=== PATIENT | female | born 1960 | race Caucasian/White ===

== ENCOUNTER 2016-06-23 15:35 | Outpatient (CLI) | payer BC | END 2016-06-23 15:36 | disposition home or self-care (01) | DX: G35 Multiple sclerosis (principal) ==

== ENCOUNTER 2017-06-16 14:39 | Outpatient (CLI) | payer BC ==
[2017-06-16 17:44] LABS: BASOPHILS % (AUTO) 1.1 %; HGB - HEMOGLOBIN 12.8 g/dL (12.0-16.0); LYMPHOCYTES % (AUTO) 43.2 %; MEAN CORPUSCULAR HEMOGLOBIN 29.6 pg (27.0-31.0); MEAN CORPUSCULAR HGB CONC 32.6 g/dL (32.0-36.0); MEAN CORPUSCULAR VOLUME 90.9 fL (81.0-99.0); MEAN PLATELET VOLUME 9.3 fL (7.9-10.8); MONOCYTES % (AUTO) 9.6 %; NEUTROPHILS % (AUTO) 41.1 %; PLT - PLATELET COUNT 198 10^3/uL (130-450); RED BLOOD COUNT 4.32 10^6/uL (4.20-5.40); WHITE BLOOD COUNT 2.9 x10^3/uL (4.8-10.8)
[2017-06-16 17:47] LABS: ABNORMAL LYMPHS % (MANUAL) 0 %; BAND NEUTROPHILS % (MANUAL) 0 %
[2017-06-16 18:15] LABS: ALKALINE PHOSPHATASE 53 IU/L (42-121); ALT ALANINE AMINOTRANSFERASE 17 IU/L (10-60); AST ASPARTATE AMINOTRANSFERASE 25 IU/L (10-42); BILIRUBIN,TOTAL 0.7 mg/dL (0.2-1.0)
[2017-06-16 18:22] LABS: DIFFERENTIAL COMMENT MANUAL DIFFERENTIAL; EOSINOPHILS # (MANUAL) 0.1 10^3/uL (0-0.7); LYMPHOCYTES # (MANUAL) 1.3 10^3/uL (1.5-3.5); LYMPHOCYTES % (MANUAL) 45 %; MONOCYTES # (MANUAL) 0.2 10^3/uL (0.0-1.0); NEUTROPHILS # (MANUAL) 1.3 10^3/uL (1.5-6.6); NEUTROPHILS % (MANUAL) 46 %; PLATELET ESTIMATE, MANUAL NORMAL (130-450,000) (NORMAL); PLATELET MORPHOLOGY NORMAL APPEARANCE (NORMAL); RBC MORPHOLOGY (MULTIPLE) NORMAL APPEARANCE (NORMAL)
[2017-06-16 18:24] LABS: BILIRUBIN,DIRECT < 0.1 mg/dL (0.1-0.5)
== END 2017-06-16 14:40 | disposition home or self-care (01) ==
LOC: LAB.F 14:39
PROVIDERS: ATTEND Psychiatry & Neurology Neurology
DX: G35 Multiple sclerosis (principal)
CPT/HCPCS: 36415; 80076; 85025

== ENCOUNTER 2018-01-18 12:39 | Outpatient (CLI) | payer BC ==
[2018-01-18 19:55] LABS: BASOPHILS % (AUTO) 1.2 %; EOSINOPHILS % (AUTO) 4.4 %; HGB - HEMOGLOBIN 13.4 g/dL (12.0-16.0); LYMPHOCYTES % (AUTO) 46.1 %; MEAN CORPUSCULAR HEMOGLOBIN 31.2 pg (27.0-31.0); MEAN CORPUSCULAR HGB CONC 33.4 g/dL (32.0-36.0); MEAN CORPUSCULAR VOLUME 93.2 fL (81.0-99.0); MEAN PLATELET VOLUME 9.8 fL (7.9-10.8); MONOCYTES % (AUTO) 10.2 %; NEUTROPHILS % (AUTO) 38.1 %; PLT - PLATELET COUNT 188 10^3/uL (130-450); RED BLOOD COUNT 4.29 10^6/uL (4.20-5.40); RED CELL DISTRIBUTION WIDTH 14.2 % (12.0-15.0); WHITE BLOOD COUNT 2.9 x10^3/uL (4.8-10.8)
[2018-01-18 20:19] LABS: ALBUMIN 4.1 g/dL (3.2-5.5); ALKALINE PHOSPHATASE 60 IU/L (42-121); ALT ALANINE AMINOTRANSFERASE 21 IU/L (10-60); AST ASPARTATE AMINOTRANSFERASE 22 IU/L (10-42); BILIRUBIN,TOTAL 0.7 mg/dL (0.2-1.0); TOTAL PROTEIN 7.3 g/dL (6.7-8.2)
[2018-01-18 20:37] LABS: ABNORMAL LYMPHS % (MANUAL) 0 %
[2018-01-18 20:38] LABS: BILIRUBIN,DIRECT < 0.1 mg/dL (0.1-0.5)
[2018-01-18 21:07] LABS: BAND NEUTROPHILS % (MANUAL) 1 %; DIFFERENTIAL COMMENT MANUAL DIFFERENTIAL; EOSINOPHILS # (MANUAL) 0.2 10^3/uL (0-0.7); LYMPHOCYTES # (MANUAL) 1.4 10^3/uL (1.5-3.5); LYMPHOCYTES % (MANUAL) 47 %; MONOCYTES # (MANUAL) 0.3 10^3/uL (0.0-1.0); NEUTROPHILS % (MANUAL) 35 %; PLATELET ESTIMATE, MANUAL NORMAL (130-450,000) (NORMAL); PLATELET MORPHOLOGY NORMAL APPEARANCE (NORMAL); RBC MORPHOLOGY (MULTIPLE) NORMAL APPEARANCE (NORMAL)
== END 2018-01-18 12:40 | disposition home or self-care (01) ==
LOC: LAB.F 12:39
PROVIDERS: ATTEND Psychiatry & Neurology Neurology
DX: G35 Multiple sclerosis (principal)
CPT/HCPCS: 36415; 80076; 81599; 85004; 85025; 85048

== ENCOUNTER 2018-03-21 13:28 | Outpatient (CLI) | payer BC ==
--- NOTE | 2018-03-21 15:27 | XRAY Report ---
Reason: DYSPNEA ON EXERTION Procedure Date: 03/21/2018 Accession Number: [id number] / [id number] Procedure: XR - Chest 2 View X-Ray CPT Code: 60602 FULL RESULT: EXAM: CHEST RADIOGRAPHY EXAM DATE: 03/21/2018 01:54 PM. CLINICAL HISTORY: Dyspnea on exertion. COMPARISON: None. TECHNIQUE: 2 views. FINDINGS: Lungs/Pleura: No focal opacities evident. No pleural effusion. No pneumothorax. Normal volumes. Mediastinum: Heart and mediastinal contours are unremarkable. Other: None. IMPRESSION: Normal 2-view chest radiography. RADIA
== END 2018-03-21 13:29 | disposition home or self-care (01) ==
LOC: DI 13:28
PROVIDERS: ATTEND Nurse Practitioner Family
DX: R06.00 Dyspnea, unspecified (principal)
CPT/HCPCS: 71046

== ENCOUNTER 2018-08-06 14:31 | Emergency (ER) | payer BC ==
--- NOTE | 2018-08-06 14:51 | ED Physician Documentation ---
PD HPI ABD PAIN - Stated complaint Stated Complaint: R SIDE PX - Chief complaint Chief Complaint: Abd Pain - History obtained from History obtained from: Patient - History of Present Illness Timing - onset: Today Timing - duration: Days (1) Timing - details: Gradual onset (She had had dysuria and frequency of urine and diagnosed with UTI in the office last week and placed on Bactrim. She was called 2 days ago and changed to Macrobid because of the culture result showing resistance to sulfa. She states she is had less of the dysuria though not com pletely resolved. Today she is having right flank pain as well. She denies any fever nausea or vomiting. She denies any abdominal pain per se. No noted rash. She denies any vaginal discharge.) Quality: Aching, Pain Location: Other (right flank) Radiation: Right flank Improved by: No: Eating Worsened by: No: Eating Associated symptoms: Nausea, Dysuria. No: Fever, Vomiting, Diarrhea, Hematuria, Vaginal dc Recently seen: Clinic (see above) Review of Systems Constitutional: reports: Myalgias. denies: Fever, Chills Nose: denies: Rhinorrhea / runny nose, Congestion Throat: denies: Sore throat Respiratory: denies: Cough GI: reports: Nausea. denies: Vomiting, Diarrhea : reports: Dysuria, Frequency. denies: Discharge Skin: denies: Rash Musculoskeletal: reports: Back pain Neurologic: denies: Generalized weakness PD PAST MEDICAL HISTORY - Past Medical History Cardiovascular: None Respiratory: None : None - Present Medications Home Medications: Ambulatory Orders Medication Instructions Recorded Confirmed Cephalexin [Keflex] 500 mg PO Q6H #28 capsule 08/06/18 Ondansetron Odt [Zofran] 4 mg TL Q6H PRN #10 tablet 08/06/18 - Allergies Allergies/Adverse Reactions: Allergies Allergy/AdvReac Type Severity Reaction Status Date / Time No Known Drug Allergies Allergy Verified 08/06/18 14:44 - Living Situation Living Arrangement: reports: At home PD ED PE NORMAL - Vitals Vital signs reviewed: Yes - General General: Alert and oriented X 3, No acute distress, Well developed/nourished - Cardiac Cardiac: RRR, No murmur - Respiratory Respiratory: Clear bilaterally - Abdomen Abdomen: Soft, Non tender - Female Female : Deferred - Back Back: Other (right CVA tender to percussion. NO rash nor sores. ) - Derm Derm: Normal color, Warm and dry - Neuro Neuro: Alert and oriented X 3, No motor deficit, Normal speech Results - Vitals Vitals: Vital Signs - 24 hr 08/06/18 08/06/18 08/06/18 14:43 14:44 15:57 Temperature 37.0 C 37.0 C 36.5 C Heart Rate 97 97 71 Respiratory 18 18 18 Rate Blood Pressure 95/62 95/62 115/59 L O2 Saturation 96 96 97 Oxygen O2 Source Room air - Labs Labs: Laboratory Tests 08/06/18 14:56 Urine Color YELLOW Urine Clarity CLEAR Urine pH 5.5 Ur Specific Monson >=1.030 H Urine Protein NEGATIVE Urine Glucose (UA) NEGATIVE Urine Ketones NEGATIVE Urine Occult Blood NEGATIVE Urine Nitrite NEGATIVE Urine Bilirubin NEGATIVE Urine Urobilinogen 0.2 (NORMAL) Ur Leukocyte Esterase NEGATIVE Ur Microscopic Review NOT INDICATED Urine Culture Comments NOT INDICATED PD MEDICAL DECISION MAKING - ED course Complexity details: considered differential (She has some pain in the right flank with CVA tenderness. The abdominal exam is nontender. She had been treated for urinary tract infection and was placed on Macrobid and still has some dysuria and now the flank pain. Discussed it with her and shared decision making of foregoing imaging or other workup and treating with an antibiotic with better tissue penetration. I called the on-call provider for [facility] [place] and review of the urine culture she had recently showed sensitivity to cephalosporins and penicillins. We will place her on cephalexin and use some anti-inflammatories and see if she is improved over the next couple of days. She is agreeable to this plan.), d/w patient Departure - Departure Disposition: 01 Home, Self Care Clinical Impression: Right flank pain UTI (urinary tract infection) Qualifiers: Urinary tract infection type: site unspecified Hematuria presence: without hematuria Qualified Code(s): N39.0 - Urinary tract infection, site not specified Condition: Stable Record reviewed to determine appropriate education?: Yes Follow-Up: Alva Heredia PA [Primary Care Provider] - Prescriptions: Cephalexin [Keflex] 500 mg PO Q6H #28 capsule Ondansetron Odt [Zofran] 4 mg TL Q6H PRN #10 tablet PRN Reason: Nausea / Vomiting Comments: Stay well-hydrated. Continue usual medications. Take cephalexin antibiotic as directed for a week for presumed kidney infection. Your urine test is clear right now but that is likely from the partial treatment from the nitrofurantoin. Your symptoms are suggestive of kidney infection and the cephalexin should do a better job. Tylenol or ibuprofen as needed for pains. Ondansetron if needed for nausea. Recheck if not improved over the next 2-3 days. Discharge Date/Time: 08/06/18 16:00
[2018-08-06 15:13] LABS: BILIRUBIN,URINE NEGATIVE (NEGATIVE); GLUCOSE, URINE (UA) NEGATIVE (NEGATIVE); KETONES,URINE (UA) NEGATIVE (NEGATIVE); LEUKOCYTE ESTERASE, URINE NEGATIVE (NEGATIVE); NITRITE,URINE NEGATIVE (NEGATIVE); OCCULT BLOOD,URINE NEGATIVE (NEGATIVE); PH,URINE 5.5 PH (5.0-7.5); PROTEIN,URINE NEGATIVE (NEGATIVE); UROBILINOGEN,URINE 0.2 (NORMAL) E.U./dL (NORMAL)
[2018-08-06 15:14] LABS: CLARITY,URINE CLEAR (CLEAR)
[2018-08-06] MEDS ORDERED: cephALEXin 250 MG CAPSULE PO STA (15:22)
[2018-08-06 15:58] VITALS: BP 115/59
== END 2018-08-06 16:00 | disposition home or self-care (01) ==
LOC: ED 14:31
DX: N39.0 Urinary tract infection, site not specified (principal)
CPT/HCPCS: 81003; 99283; A9270; 81001; 87086

== ENCOUNTER 2019-02-24 14:27 | Outpatient (CLI) | payer BC ==
[2019-02-24 17:45] LABS: BASOPHILS % (AUTO) 1.3 %; EOSINOPHILS # (AUTO) 0.2 10^3/uL (0.0-0.7); EOSINOPHILS % (AUTO) 4.7 %; HGB - HEMOGLOBIN 12.5 g/dL (12.0-16.0); LYMPHOCYTES # (AUTO) 1.3 10^3/uL (1.5-3.5); LYMPHOCYTES % (AUTO) 39.9 %; MEAN CORPUSCULAR HEMOGLOBIN 30.6 pg (27.0-31.0); MEAN CORPUSCULAR HGB CONC 32.6 g/dL (32.0-36.0); MEAN CORPUSCULAR VOLUME 93.9 fL (81.0-99.0); MEAN PLATELET VOLUME 11.5 fL (7.9-10.8); MONOCYTES # (AUTO) 0.4 10^3/uL (0.0-1.0); MONOCYTES % (AUTO) 11.1 %; NEUTROPHILS # (AUTO) 1.4 10^3/uL (1.5-6.6); PLT - PLATELET COUNT 202 10^3/uL (130-450); RED BLOOD COUNT 4.08 10^6/uL (4.20-5.40); WHITE BLOOD COUNT 3.2 x10^3/uL (4.8-10.8)
[2019-02-24 18:07] LABS: ALBUMIN 4.1 g/dL (3.2-5.5); BILIRUBIN,DIRECT 0.1 mg/dL (0.1-0.5); TOTAL PROTEIN 7.1 g/dL (6.7-8.2)
== END 2019-02-24 14:28 | disposition home or self-care (01) ==
LOC: LAB.S 14:27
PROVIDERS: ATTEND Psychiatry & Neurology Neurology
DX: G35 Multiple sclerosis (principal)
CPT/HCPCS: 36415; 80076; 85025

== ENCOUNTER 2020-02-12 08:00 | Outpatient (CLI) | payer BC ==
[2020-02-12 20:05] LABS: BASOPHILS # (AUTO) 0.1 10^3/uL (0.0-0.1); BASOPHILS % (AUTO) 1.6 %; EOSINOPHILS # (AUTO) 0.2 10^3/uL (0.0-0.7); EOSINOPHILS % (AUTO) 7.6 %; HGB - HEMOGLOBIN 12.4 g/dL (12.0-16.0); LYMPHOCYTES # (AUTO) 1.2 10^3/uL (1.5-3.5); LYMPHOCYTES % (AUTO) 39.4 %; MEAN CORPUSCULAR HEMOGLOBIN 30.3 pg (27.0-31.0); MEAN CORPUSCULAR HGB CONC 32.5 g/dL (32.0-36.0); MEAN CORPUSCULAR VOLUME 93.2 fL (81.0-99.0); MONOCYTES # (AUTO) 0.3 10^3/uL (0.0-1.0); MONOCYTES % (AUTO) 10.2 %; NEUTROPHILS # (AUTO) 1.3 10^3/uL (1.5-6.6); NEUTROPHILS % (AUTO) 40.6 %; PLT - PLATELET COUNT 216 10^3/uL (130-450); RED BLOOD COUNT 4.09 10^6/uL (4.20-5.40); RED CELL DISTRIBUTION WIDTH 12.9 % (12.0-15.0); WHITE BLOOD COUNT 3.2 x10^3/uL (4.8-10.8)
[2020-02-12 20:12] LABS: INR 1.1 (0.8-1.2); PT - PROTHROMBIN TIME 11.9 secs (9.9-12.6)
[2020-02-12 20:27] LABS: ALBUMIN 4.2 g/dL (3.2-5.5); ALBUMIN/GLOBULIN RATIO 1.4 (1.0-2.2); BILIRUBIN,TOTAL 0.4 mg/dL (0.2-1.0); CALCIUM 9.5 mg/dL (8.5-10.3); CREATININE 0.8 mg/dL (0.4-1.0); PARTIAL THROMBOPLASTIN TIME 31.7 secs (24.9-33.3); TOTAL PROTEIN 7.3 g/dL (6.7-8.2)
== END 2020-02-12 23:59 | disposition home or self-care (01) ==
LOC: LAB.S 08:00
PROVIDERS: ATTEND Registered Nurse
DX: R00.2 Palpitations (principal); R00.0 Tachycardia, unspecified; R58 Hemorrhage, not elsewhere classified
CPT/HCPCS: 36415; 80053; 84443; 85025; 85379; 85610; 85730

== ENCOUNTER 2020-06-17 13:46 | Outpatient (CLI) | payer BC ==
[2020-06-17 19:41] LABS: BASOPHILS % (AUTO) 1.1 %; EOSINOPHILS # (AUTO) 0.1 10^3/uL (0.0-0.7); EOSINOPHILS % (AUTO) 3.8 %; HGB - HEMOGLOBIN 11.8 g/dL (12.0-16.0); MEAN CORPUSCULAR HEMOGLOBIN 29.7 pg (27.0-31.0); MEAN CORPUSCULAR HGB CONC 31.1 g/dL (32.0-36.0); MEAN CORPUSCULAR VOLUME 95.5 fL (81.0-99.0); MEAN PLATELET VOLUME 11.5 fL (7.9-10.8); MONOCYTES # (AUTO) 0.3 10^3/uL (0.0-1.0); MONOCYTES % (AUTO) 10.2 %; NEUTROPHILS # (AUTO) 1.2 10^3/uL (1.5-6.6); NEUTROPHILS % (AUTO) 45.5 %; PLT - PLATELET COUNT 202 10^3/uL (130-450); RED BLOOD COUNT 3.97 10^6/uL (4.20-5.40); RED CELL DISTRIBUTION WIDTH 13.2 % (12.0-15.0); WHITE BLOOD COUNT 2.6 x10^3/uL (4.8-10.8)
[2020-06-17 20:00] LABS: ALBUMIN 3.8 g/dL (3.2-5.5); BILIRUBIN,DIRECT 0.1 mg/dL (0.1-0.5); BILIRUBIN,TOTAL 0.7 mg/dL (0.2-1.0); TOTAL PROTEIN 6.9 g/dL (6.7-8.2)
[2020-06-17 20:09] LABS: PLATELET ESTIMATE, MANUAL NORMAL (130-450,000) (NORMAL); PLATELET MORPHOLOGY NORMAL APPEARANCE (NORMAL); RBC MORPHOLOGY (MULTIPLE) NORMAL APPEARANCE (NORMAL)
[2020-06-17 20:12] LABS: THYROID STIMULATING HORMONE 5.27 uIU/mL (0.34-5.60)
[2020-06-17 20:13] LABS: FREE T3 2.7 pg/mL (2.5-3.9)
[2020-06-17 20:14] LABS: FREE T4 (FREE THYROXINE) 0.71 ng/dL (0.58-1.64)
== END 2020-06-17 13:47 | disposition home or self-care (01) ==
LOC: LAB.S 13:46
PROVIDERS: ATTEND Psychiatry & Neurology Neurology
DX: R79.89 Other specified abnormal findings of blood chemistry (principal); G35 Multiple sclerosis; Z79.899 Other long term (current) drug therapy
CPT/HCPCS: 36415; 80076; 84439; 84443; 84481; 85025

== ENCOUNTER 2020-08-23 08:00 | Outpatient (CLI) | payer BC ==
[2020-08-23 14:43] LABS: BASOPHILS % (AUTO) 0.9 %; EOSINOPHILS # (AUTO) 0.1 10^3/uL (0.0-0.7); HCT - HEMATOCRIT 38.9 % (37.0-47.0); HGB - HEMOGLOBIN 12.3 g/dL (12.0-16.0); LYMPHOCYTES # (AUTO) 0.9 10^3/uL (1.5-3.5); LYMPHOCYTES % (AUTO) 26.4 %; MEAN CORPUSCULAR HEMOGLOBIN 29.6 pg (27.0-31.0); MEAN CORPUSCULAR HGB CONC 31.6 g/dL (32.0-36.0); MEAN CORPUSCULAR VOLUME 93.7 fL (81.0-99.0); MEAN PLATELET VOLUME 11.5 fL (7.9-10.8); MONOCYTES # (AUTO) 0.3 10^3/uL (0.0-1.0); MONOCYTES % (AUTO) 8.6 %; NEUTROPHILS # (AUTO) 2.2 10^3/uL (1.5-6.6); NEUTROPHILS % (AUTO) 62.1 %; PLT - PLATELET COUNT 167 10^3/uL (130-450); RED BLOOD COUNT 4.15 10^6/uL (4.20-5.40); RED CELL DISTRIBUTION WIDTH 13.2 % (12.0-15.0); WHITE BLOOD COUNT 3.5 x10^3/uL (4.8-10.8)
[2020-08-23 15:34] LABS: ALBUMIN/GLOBULIN RATIO 1.3 (1.0-2.2); BILIRUBIN,TOTAL 0.5 mg/dL (0.2-1.0); CALCIUM 9.4 mg/dL (8.5-10.3); CREATININE 0.8 mg/dL (0.4-1.0); CRP - C-REACTIVE PROTEIN 1.3 mg/dL (0-1.0); POTASSIUM 3.5 mmol/L (3.5-5.0); TOTAL PROTEIN 7.2 g/dL (6.7-8.2)
== END 2020-08-23 23:59 | disposition home or self-care (01) ==
LOC: LAB.S 08:00
PROVIDERS: ATTEND Emergency Medicine
DX: R19.7 Diarrhea, unspecified (principal); R10.13 Epigastric pain
CPT/HCPCS: 36415; 80053; 81599; 83690; 85025; 85651; 86140; 87045; 87046; 87177; 87209; 87427

== ENCOUNTER 2021-08-01 13:48 | Outpatient (CLI) | payer BC ==
[2021-08-01 20:02] LABS: BASOPHILS % (AUTO) 1.5 %; EOSINOPHILS % (AUTO) 4.4 %; HCT - HEMATOCRIT 37.8 % (37.0-47.0); HGB - HEMOGLOBIN 12.2 g/dL (12.0-16.0); LYMPHOCYTES % (AUTO) 38.3 %; MEAN CORPUSCULAR HGB CONC 32.3 g/dL (32.0-36.0); MEAN CORPUSCULAR VOLUME 92.9 fL (81.0-99.0); MEAN PLATELET VOLUME 11.9 fL (7.9-10.8); MONOCYTES % (AUTO) 10.6 %; NEUTROPHILS % (AUTO) 44.8 %; PLT - PLATELET COUNT 197 10^3/uL (130-450); RED BLOOD COUNT 4.07 10^6/uL (4.20-5.40); RED CELL DISTRIBUTION WIDTH 13.1 % (12.0-15.0); WHITE BLOOD COUNT 2.7 x10^3/uL (4.8-10.8)
[2021-08-01 20:06] LABS: ABNORMAL LYMPHS % (MANUAL) 0 %
[2021-08-01 20:28] LABS: BILIRUBIN,DIRECT 0.1 mg/dL (0.1-0.5); BILIRUBIN,TOTAL 0.4 mg/dL (0.2-1.0); TOTAL PROTEIN 7.2 g/dL (6.7-8.2)
[2021-08-01 20:32] LABS: BAND NEUTROPHILS % (MANUAL) 1 %; BASOPHILS # (MANUAL) 0.1 10^3/uL (0-0.1); BASOPHILS % (MANUAL) 2 %; DIFFERENTIAL COMMENT MANUAL DIFFERENTIAL; EOSINOPHILS # (MANUAL) 0.1 10^3/uL (0-0.7); LYMPHOCYTES # (MANUAL) 0.8 10^3/uL (1.5-3.5); LYMPHOCYTES % (MANUAL) 28 %; MONOCYTES # (MANUAL) 0.4 10^3/uL (0.0-1.0); NEUTROPHILS # (MANUAL) 1.4 10^3/uL (1.5-6.6); PLATELET ESTIMATE, MANUAL NORMAL (130-450,000) (NORMAL); PLATELET MORPHOLOGY NORMAL APPEARANCE (NORMAL); RBC MORPHOLOGY (MULTIPLE) NORMAL APPEARANCE (NORMAL); WBC MORPHOLOGY (MULTIPLE) NORMAL APPEARANCE (NORMAL)
== END 2021-08-01 13:49 | disposition home or self-care (01) ==
LOC: LAB.S 13:48
PROVIDERS: ATTEND Psychiatry & Neurology Neurology
DX: G35 Multiple sclerosis (principal)
CPT/HCPCS: 36415; 80076; 85025

== ENCOUNTER 2021-09-23 17:12 | Emergency (ER) | payer BC ==
--- OUTSIDE RECORDS SUMMARY | 2021-09-23 17:33 | EXTERNAL MEDICAL SUMMARY RPT | Continuity of Care Document ---
:1960 Author Organization [place] Address [address] [place] [address] Phone Care Team Providers Name Role Phone Vasiliy ALEJANDRO Unavailable Unavailable Allergies No information. Encounters No information. Medications No information. Problems date description facility [id number] Total score? [facility] 20210923 Tobacco smoking status [facility] 20210923 Never smoker [facility] 20210923 Left lower quadrant pain [facility] [id number] Details of drug misuse behavior [facility] 20210923 Alcohol use [facility] [id number] Abdominal pain, left lower quadrant [facility] Results No information. Vital Signs date measurement value source 20210923 weight_standard 146.2 lb 20210923 weight_metric 66.32 kg 20210923 temperature_standard 98.1 F 20210923 temperature_metric 36.72 C 20210923 respiration_rate 16 /min [id number] height_standard 66 in [id number] height_metric 167.64 cm [id number] heart_rate 77 /min [id number] BP_systolic 107 mm[Hg] 20210923 BP_diastolic 56 mm[Hg] 20210923 BMI 23.68 kg/m2
[2021-09-23 18:19] LABS: BASOPHILS % (AUTO) 0.9 %; EOSINOPHILS # (AUTO) 0.1 10^3/uL (0.0-0.7); HCT - HEMATOCRIT 39.8 % (37.0-47.0); HGB - HEMOGLOBIN 13.1 g/dL (12.0-16.0); LYMPHOCYTES # (AUTO) 1.4 10^3/uL (1.5-3.5); LYMPHOCYTES % (AUTO) 31.3 %; MEAN CORPUSCULAR HEMOGLOBIN 30.3 pg (27.0-31.0); MEAN CORPUSCULAR HGB CONC 32.9 g/dL (32.0-36.0); MEAN CORPUSCULAR VOLUME 91.9 fL (81.0-99.0); MEAN PLATELET VOLUME 10.6 fL (7.9-10.8); MONOCYTES # (AUTO) 0.4 10^3/uL (0.0-1.0); MONOCYTES % (AUTO) 9.6 %; NEUTROPHILS # (AUTO) 2.4 10^3/uL (1.5-6.6); PLT - PLATELET COUNT 205 10^3/uL (130-450); RED BLOOD COUNT 4.33 10^6/uL (4.20-5.40); RED CELL DISTRIBUTION WIDTH 12.9 % (12.0-15.0); WHITE BLOOD COUNT 4.4 x10^3/uL (4.8-10.8)
[2021-09-23] MEDS ORDERED: KETOROLAC 15 MG/ML VIAL IVP STA (18:24)
--- NOTE | 2021-09-23 18:25 | ED Physician Documentation ---
PD HPI ABD PAIN - Stated complaint Stated Complaint: ABD BACK & BILAT LEG PX/BLOOD IN STOOL - Chief complaint Chief Complaint: Abd Pain - History obtained from History obtained from: Patient - Additional information Additional information: 61-year-old woman with history of multiple sclerosis but otherwise very healthy. Remote history of left oophorectomy for torsion. She presents with pelvic pain for the last 2 weeks now radiating to the back since yesterday. Pain was so severe last night that despite taking a Percocet at home she was unable to sleep. 2 days ago she noted some small amount of blood mixed in with the stool. It was not on the paper or in the toilet bowl. No fevers. Never had a colonoscopy. No other abdominal surgeries except for the aforementioned oophorectomy. Review of Systems Constitutional: denies: Fever, Chills Ears: reports: Reviewed and negative Cardiac: reports: Reviewed and negative Respiratory: reports: Reviewed and negative PD PAST MEDICAL HISTORY - Past Medical History Cardiovascular: None Respiratory: None Neuro: Multiple sclerosis : None - Past Surgical History Past Surgical History: No - Present Medications Home Medications: Ambulatory Orders Medication Instructions Recorded Confirmed Fluoxetine HCl [Prozac] 20 mg PO DAILY PM 09/23/21 09/23/21 LORazepam [Ativan] 1 mg PO HS 09/23/21 09/23/21 Teriflunomide [Aubagio] 7 mg PO HS 09/23/21 09/23/21 - Allergies Allergies/Adverse Reactions: Allergies Allergy/AdvReac Type Severity Reaction Status Date / Time No Known Drug Allergies Allergy Verified 08/06/18 14:44 - Social History Does the pt smoke?: No Smoking Status: Never smoker Does the pt drink ETOH?: Yes Does the pt have substance abuse?: No - Immunizations Immunizations are current?: Yes PD ED PE NORMAL - Vitals Vital signs reviewed: Yes - General General: Alert and oriented X 3, No acute distress - Cardiac Cardiac: RRR, No murmur - Respiratory Respiratory: No respiratory distress, Clear bilaterally - Abdomen Abdomen: Other (Focally tender in the left lower quadrant, significantly so but without surgical signs. Normal bowel tones.) - Back Back: No CVA TTP, No spinal TTP - Derm Derm: Normal color, Warm and dry - Extremities Extremities: No edema, No calf tenderness / cord - Neuro Neuro: Alert and oriented X 3, Normal speech Eye Opening: Spontaneous Motor: Obeys Commands Verbal: Oriented GCS Score: 15 Results - Vitals Vitals: Vital Signs - 24 hr 09/23/21 09/23/21 09/23/21 17:23 18:36 20:00 Temperature 36.4 C L Heart Rate 67 59 L 62 Respiratory 12 16 16 Rate Blood Pressure 145/50 H 148/68 H 119/62 O2 Saturation 99 100 100 Oxygen O2 Source Room air - Labs Labs: Laboratory Tests 09/23/21 09/23/21 09/23/21 18:07 18:07 18:07 WBC 4.4 L RBC 4.33 Hgb 13.1 Hct 39.8 MCV 91.9 MCH 30.3 MCHC 32.9 RDW 12.9 Plt Count 205 MPV 10.6 Neut # (Auto) 2.4 Lymph # (Auto) 1.4 L Hidalgo # (Auto) 0.4 Eos # (Auto) 0.1 Baso # (Auto) 0.0 Absolute Nucleated RBC 0.00 Nucleated RBC % 0.0 PT 11.6 INR 1.0 Sodium 137 Potassium 4.1 Chloride 100 L Carbon Dioxide 28 Anion Gap 9.0 BUN 21 H Creatinine 0.7 Estimated GFR (MDRD) 85 L Glucose 96 Calcium 9.5 Total Bilirubin 0.8 AST 22 ALT 16 Alkaline Phosphatase 57 Total Protein 7.9 Albumin 4.5 Globulin 3.4 Albumin/Globulin Ratio 1.3 Lipase 50 PD MEDICAL DECISION MAKING - ED course ED course: 67-year-old woman presents with lower and left lower quadrant pain with some hematochezia a few days ago and now constipation. CT of the abdomen pelvis with IV contrast read as normal with the exception of fibroids. There is some firm appearing stool in the left lower quadrant and this may be causative. She is trialed on magnesium citrate with close follow-up precautions. Departure - Departure Disposition: 01 Home, Self Care Clinical Impression: Constipation Qualifiers: Constipation type: unspecified constipation type Qualified Code(s): K59.00 - Constipation, unspecified Abdominal pain Qualifiers: Abdominal location: lower abdomen, unspecified Qualified Code(s): R10.30 - Lower abdominal pain, unspecified Condition: Good Record reviewed to determine appropriate education?: Yes Instructions: ED Abdominal Pain Female Non-Specific Abdominal Pain Comments: As discussed, I think the magnesium citrate will clean you out and you will feel much better. If that does not resolve your symptoms please return in 24 hours or so for reevaluation.
[2021-09-23 18:28] LABS: ALBUMIN 4.5 g/dL (3.2-5.5); ALBUMIN/GLOBULIN RATIO 1.3 (1.0-2.2); BILIRUBIN,TOTAL 0.8 mg/dL (0.2-1.0); CALCIUM 9.5 mg/dL (8.5-10.3); CREATININE 0.7 mg/dL (0.4-1.0); POTASSIUM 4.1 mmol/L (3.5-5.0); TOTAL PROTEIN 7.9 g/dL (6.7-8.2)
[2021-09-23 18:29] LABS: PT - PROTHROMBIN TIME 11.6 secs (9.9-12.6)
[2021-09-23] MEDS ORDERED: IOVERSOL 320 100 ML VIAL IVP ONE ×2 (18:39→20:15)
--- NOTE | 2021-09-23 20:05 | CT Report ---
PROCEDURE: Abdomen/Pelvis W INDICATIONS: IV only, LLQ pain CONTRAST: IV CONTRAST: Optiray 320 ml: 100 PO CONTRAST: *NO PO CONTRAST TECHNIQUE: After the administration of intravenous contrast, 5 mm thick sections acquired from the diaphragms to the symphysis. 5 mm thick coronal and sagittal reformats were acquired. For radiation dose reducti on, the following was used: automated exposure control, adjustment of mA and/or kV according to marleni ent size. COMPARISON: None. FINDINGS: Image quality: Excellent. ABDOMEN: Lung bases: Lung bases are clear. Heart size is normal. Solid organs: Liver and spleen are normal in size and enhancement. Gallbladder is unremarkable. Bi liary system is non dilated. Pancreas enhances normally. No adrenal nodules. Kidneys demonstrate n ormal size and enhancement, without hydronephrosis. Peritoneum and bowel: Bowel loops demonstrate normal wall thickness and caliber. No free fluid or a ir. Nodes and vessels: No retroperitoneal or mesenteric adenopathy by size criteria. Aorta and inferior vena cava are normal in size. Miscellaneous: No ventral hernias. PELVIS: Genitourinary: Bladder wall thickness is normal. Miscellaneous: No inguinal hernias or adenopathy. Incidental note is made of the presence of multipl e fibroids, or approximately 2 cm. Bones: No suspicious bony lesions. No vertebral body compression fractures. Diffuse lumbar degenera tive change. IMPRESSION: 1. No evidence of acute abdominal process. No findings which explain the patient's left lower quadran t pain symptomatology. 2. Incidental note note made of the presence of uterine fibroids, of doubtful clinical significance Reviewed by: Markos Valles MD on 09/23/2021 8:03 PM PDT Approved by: Markos Valles MD on 09/23/2021 8:03 PM PDT Station ID: [id number]
[2021-09-23] MEDS ORDERED: MAGNESIUM CITRATE 296 ML BOTTLE PO STA (20:29)
[2021-09-23 20:41] VITALS: BP 132/68
== END 2021-09-23 20:41 | disposition home or self-care (01) ==
LOC: ED 17:12
DX: K59.00 Constipation, unspecified (principal); R10.30 Lower abdominal pain, unspecified; G35 Multiple sclerosis
CPT/HCPCS: 36415; 74177; 80053; 83690; 85025; 85610; 96374; 99282; 99284; A9270; Q9967

== ENCOUNTER 2021-10-10 15:07 | Outpatient (CLI) | payer BC ==
[2021-10-10 21:15] LABS: THYROID STIMULATING HORMONE 6.03 uIU/mL (0.34-5.60)
[2021-10-10 21:20] LABS: FERRITIN 193.3 ng/mL (11.0-306.8)
[2021-10-10 21:29] LABS: % IRON SATURATION 32 % (20-50); IRON 94 ug/dL (28-170); TOTAL IRON BINDING CAPACITY 297 ug/dL (250-450); TRANSFERRIN 212 mg/dL (192-382)
[2021-10-10 22:01] LABS: FREE T4 (FREE THYROXINE) 0.72 ng/dL (0.58-1.64)
== END 2021-10-10 15:08 | disposition home or self-care (01) ==
LOC: LAB.S 15:07
PROVIDERS: ATTEND Registered Nurse
DX: L65.9 Nonscarring hair loss, unspecified (principal)
CPT/HCPCS: 36415; 82728; 83540; 84439; 84443; 84466; 85651

== ENCOUNTER 2022-01-14 10:31 | Day surgery (SDC) | payer BC ==
[2022-01-14] MEDS ORDERED: LACTATED RINGERS 1,000 ML IV ONE (10:49)
--- NOTE | 2022-01-14 11:09 | ANESTHESIA ---
Pre-Anesthesia VS, & Labs - Diagnosis screening - Procedure colonoscopy Vital Signs: Temp Pulse Resp BP Pulse Ox 36.0 C L 68 17 131/70 H 100 01/14/22 10:50 01/14/22 10:50 01/14/22 10:50 01/14/22 10:50 01/14/22 10:50 Height: 5 ft 6 in Weight (kg): 63.8 kg Body Mass Index: 22.6 BMI Classification: Healthy weight - NPO >8 hours - Is Patient ?: No Home Medications and Allergies Fluoxetine HCl [Prozac] 20 mg PO DAILY PM 09/23/21 LORazepam [Ativan] 1 mg PO HS 09/23/21 Teriflunomide [Aubagio] 7 mg PO HS 09/23/21 Allergies/Adverse Reactions: Allergies Allergy/AdvReac Type Severity Reaction Status Date / Time No Known Drug Allergies Allergy Verified 01/14/22 10:55 Anes History & Medical History - Anesthetic History Anesthesia Complications: reports: No previous complications - Medical History Cardiovascular: reports: None Pulmonary: reports: None Gastrointestinal: reports: GERD, Ulcers Urinary: reports: None Neuro: reports: Multiple sclerosis Musculoskeletal: reports: Other (MS) Endocrine/Autoimmune: reports: None Skin: reports: None Smoking Status: Never smoker - Surgical History Gynecologic: reports: Tubal ligation, Oophrectomy Exam General: Alert, Oriented x3, Cooperative Dental: WNL Mouth Opening: Greater than 4 Fingerbreadths Neck Mobility: Normal Mallampati classification: II Thyromental Distance: greater than 6 cm Respiratory: Lungs clear Cardiovascular: Regular rate Plan Anesthesia Type: Total IV Consent for Procedure(s) Verified and Reviewed: Yes Code Status: Attempt Resuscitation ASA classification: 2-Mild systemic disease Is this case an emergency?: No
[2022-01-14] MEDS ORDERED: PROPOFOL 500 MG/50 ML 500 MG/50 ML VIAL ONE (11:13)
[2022-01-14] MEDS ORDERED: LACTATED RINGERS 700 ML IV ONE (12:04)
--- NOTE | 2022-01-14 12:25 | ANESTHESIA POST OP EVALUATION ---
Anesthesia Post Eval - Post Anesthesia Eval Vitals: Last Vital Signs Temp 36.7 C 01/14/22 12:04 Pulse 82 01/14/22 12:15 Resp 16 01/14/22 12:15 BP 116/41 L 01/14/22 12:15 Pulse Ox 100 01/14/22 12:15 CV Function Including HR & BP: Stable Pain Control: Satisfactory Nausea & Vomiting: Negative Mental Status: Baseline Respiratory Status: Airway Patent Hydration Status: Satisfactory Anesthesia Complications: None
[2022-01-14 12:29] VITALS: BP 97/81
== END 2022-01-14 10:32 | disposition home or self-care (01) ==
LOC: SDS 10:31
PROVIDERS: ATTEND Surgery
PROC: 0DBP8ZX Excision of Rectum, Via Natural or Artificial Opening Endoscopic, Diagnostic (ICD-10-PCS; principal; 2022-01-14 11:30)
DX: R19.5 Other fecal abnormalities (principal); K62.1 Rectal polyp; K64.8 Other hemorrhoids; K59.00 Constipation, unspecified
CPT/HCPCS: 45380; J7120

== ENCOUNTER 2022-01-30 12:44 | Outpatient (CLI) | payer BC ==
--- NOTE | 2022-01-30 13:27 | DEXA Report ---
PROCEDURE: Dexa Spine and/or Hip INDICATIONS: SCREENING FOR OSTEOPOROSIS TECHNIQUE: Dual energy x-ray absorptiometry (DXA) was performed on a [employer] System. Regions measur ed are the AP Spine, femoral neck, and if needed forearm. COMPARISON: None. FINDINGS: Lumbar Spine: Bone Mineral Density 1.254 g/cm/cm,T score 0.6, normal bone density Left Hip: Bone Mineral Density 0.911 g/cm/cm,T score -0.8, normal bone density Left Femoral Neck: Bone Mineral Density 0.976 g/cm/cm, T score -0.4, normal bone density (T score greater or equal to -1.0: NORMAL) (T score from -1.1 to -2.4: OSTEOPENIA) (T score less than or equal to -2.5 to: OSTEOPOROSIS) Impression: Normal bone density. Patients with diagnosis of osteoporosis or osteopenia should have regular bone mineral density assess ment. For those eligible for Medicare, routine testing is allowed once every 2 years. Testing frequ ency can be increased for patients who have rapidly progressing disease or for those who are receivin g medical therapy to restore bone mass. Reviewed by: Berto Moon MD on 01/30/2022 1:26 PM PDT Approved by: Berto Moon MD on 01/30/2022 1:26 PM PDT Station ID: [id number]
== END 2022-01-30 12:45 | disposition home or self-care (01) ==
LOC: DI 12:44
PROVIDERS: ATTEND Registered Nurse
DX: Z13.820 Encounter for screening for osteoporosis (principal); Z78.0 Asymptomatic menopausal state

== ENCOUNTER 2022-01-30 12:44 | Outpatient (CLI) | payer BC ==
--- NOTE | 2022-02-05 10:21 | Mammography Report ---
BILATERAL DIGITAL SCREENING MAMMOGRAM 3D/2D: 01/30/2022 CLINICAL: Routine screening. Comparison is made to exam dated: 02/22/2015 mammogram - [facility]. There are scattered areas of fibroglandular density in both breasts (category b / 25%-50% glandular t issue). No significant masses, calcifications, or other findings are seen in either breast. There has been no significant interval change. IMPRESSION: NEGATIVE There is no mammographic evidence of malignancy. A 1 year screening mammogram is recommended. Based on the Tyrer Cuzick model (a risk assessment model) the patients lifetime risk is 7.0% and her 10 year risk is 2.8%. According to the ACR, ACS, and NCCN guidelines, an annual breast MRI exam alok g with mammogram is recommended if the patients lifetime risk is 20% or greater. This exam was interpreted at Station ID: [id number]. NOTE: For mammograms, a report in lay terms will be sent to the patient. Approximately 15% of breast malignancies will not be visualized mammographically. In the management of a palpable breast mass, a negative mammogram must not discourage biopsy of a clinically suspicious lesion. Electronically Signed By: Phill paris/penrad:02/04/2022 10:12:06 ACR BI-RADS Category 1: Negative 3341F PARENCHYMAL PATTERN: (A) - The breast(s) demonstrate(s) scattered fibroglandular densities. BI-RADS CATEGORY: (1) - 1 RECOMMENDATION: (ANNUAL) - Recommend routine annual screening mammography. [id number] 1 year screening LATERALITY: (B)
== END 2022-01-30 12:45 | disposition home or self-care (01) ==
LOC: DI 12:44
PROVIDERS: ATTEND Registered Nurse
DX: Z12.31 Encounter for screening mammogram for malignant neoplasm of breast (principal)

== ENCOUNTER 2023-07-08 15:47 | Emergency (ER) | payer BC ==
--- NOTE | 2023-07-08 16:44 | XRAY Report ---
PROCEDURE: Knee 4+V RT INDICATIONS: fall with hyperextension of knee TECHNIQUE: 3 views of the knee was obtained. COMPARISON: None FINDINGS: Bones: Tibial plateau fracture with impaction of fracture fragments extends to the medial compartmen t tibial articular surface . Soft tissues: Moderate knee joint effusion. No suspicious soft tissue calcifications or masses. IMPRESSION: Intra-articular medial tibial plateau fracture extends through the lateral tibial metaphysis Reviewed by: Lester Marshall MD on 07/08/2023 3:43 PM [facility] Approved by: Lester Marshall MD on 07/08/2023 3:43 PM [facility] Station ID: [id number]
[2023-07-08] MEDS: HYDROmorphone 1 MG/ML CARPUJECT IVP STA ×2 (17:41→19:24)
[2023-07-08] MEDS: SODIUM CHLORIDE 0.9% 1,000 ML IV STA (17:54)
[2023-07-08 17:59] LABS: BASOPHILS % (AUTO) 0.6 %; EOSINOPHILS # (AUTO) 0.1 10^3/uL (0.0-0.7); EOSINOPHILS % (AUTO) 1.5 %; HCT - HEMATOCRIT 39.2 % (37.0-47.0); HGB - HEMOGLOBIN 12.6 g/dL (12.0-16.0); LYMPHOCYTES # (AUTO) 1.4 10^3/uL (1.5-3.5); LYMPHOCYTES % (AUTO) 19.1 %; MEAN CORPUSCULAR HEMOGLOBIN 29.2 pg (27.0-31.0); MEAN CORPUSCULAR HGB CONC 32.1 g/dL (32.0-36.0); MEAN CORPUSCULAR VOLUME 90.7 fL (81.0-99.0); MONOCYTES # (AUTO) 0.5 10^3/uL (0.0-1.0); NEUTROPHILS # (AUTO) 5.1 10^3/uL (1.5-6.6); NEUTROPHILS % (AUTO) 71.7 %; PLT - PLATELET COUNT 217 10^3/uL (130-450); RED BLOOD COUNT 4.32 10^6/uL (4.20-5.40); RED CELL DISTRIBUTION WIDTH 12.9 % (12.0-15.0); WHITE BLOOD COUNT 7.2 x10^3/uL (4.8-10.8)
[2023-07-08 18:03] LABS: PT - PROTHROMBIN TIME 11.3 secs (9.9-12.6)
[2023-07-08] MEDS: ONDANSETRON 4 MG/2 ML VIAL IVP STA (18:15)
[2023-07-08 18:22] LABS: ALBUMIN 4.4 g/dL (3.2-5.5); ALBUMIN/GLOBULIN RATIO 1.7 (1.0-2.2); BILIRUBIN,TOTAL 0.6 mg/dL (0.2-1.0); CALCIUM 10.2 mg/dL (8.5-10.3); CREATININE 0.8 mg/dL (0.6-1.3); POTASSIUM 4.1 mmol/L (3.5-4.5)
--- NOTE | 2023-07-08 18:29 | CT Report ---
PROCEDURE: Lower Extremity RT WO INDICATIONS: tibial plateau fracture TECHNIQUE: Noncontrast 3-mm axial sections acquired from the distal tibial shaft to the talar dome, with coronal and sagittal reformats. For radiation dose reduction, the following was used: automated exposure c ontrol, adjustment of mA and/or kV according to patient size. COMPARISON: None. FINDINGS: Image quality: Diagnostic Bones: Mildly displaced and comminuted tibial plateau fracture, extending to both the lateral and med ial intra-articular regions. Knee joint alignment appears maintained. There is a transverse component extending from the lateral tibial plateau, to the medial cortex. Soft tissues: Lipohemarthrosis. There is soft tissue swelling. IMPRESSION: Schatzker 6 tibial plateau fracture. Reviewed by: Phill Ga MD on 07/08/2023 6:27 PM [facility] Approved by: Phill Ga MD on 07/08/2023 6:27 PM [facility] Station ID: [id number]
--- NOTE | 2023-07-08 19:10 | ED Physician Documentation ---
PD HPI LOWER EXT INJURY - Stated complaint Stated Complaint: FALL - Chief complaint Chief Complaint: Trauma Ext - History obtained from History obtained from: Patient - Additional information Additional information: The patient comes to the emergency department chief complaint of right knee pain after her large dogs collided with her leg this afternoon while she was out for a walk. The patient has a history of multiple sclerosis, but is ambulatory and has only very mild degree of disease. He she states that when the dogs ran into her leg, she was she felt a pop and was thrown in the air and landed on the sidewalk on her back. She states she did not have any back pain but she did notice pain in her right knee immediately. She has not been able to bear weight since. She has noticed some lateral swelling and states the entire knee hurts. No other injuries. The dogs did not bite her. She has no history of any orthopedic injuries or surgeries. PD PAST MEDICAL HISTORY - Past Medical History Cardiovascular: None Respiratory: None Neuro: Multiple sclerosis : None Musculoskeletal: Other - Past Surgical History Past Surgical History: No - Present Medications Home Medications: Ambulatory Orders Medication Instructions Recorded Confirmed Fluoxetine HCl [Prozac] 20 mg PO DAILY PM 09/23/21 07/08/23 LORazepam [Ativan] 1 mg PO HS 09/23/21 07/08/23 Teriflunomide [Aubagio] 7 mg PO HS 09/23/21 07/08/23 Thyroid,Pork [[place] Thyroid] 35 mg PO 07/08/23 estradioL [Estradiol] 10 mg PO DAILY 07/08/23 07/08/23 - Allergies Allergies/Adverse Reactions: Allergies Allergy/AdvReac Type Severity Reaction Status Date / Time No Known Drug Allergies Allergy Verified 07/08/23 16:01 - Social History Does the pt smoke?: No Smoking Status: Never smoker Does the pt drink ETOH?: Yes Does the pt have substance abuse?: No - Immunizations Immunizations are current?: Yes PD ED PE NORMAL - Vitals Vital signs reviewed: Yes - General General: Alert and oriented X 3, No acute distress, Well developed/nourished - HEENT HEENT: Atraumatic, PERRL, EOMI, Moist mucous membranes - Neck Neck: Supple, no meningeal sign - Cardiac Cardiac: RRR, No murmur - Respiratory Respiratory: No respiratory distress, Clear bilaterally - Abdomen Abdomen: Soft, Non tender, Non distended - Derm Derm: Normal color, Warm and dry, No rash - Extremities Extremities: No deformity, No calf tenderness / cord (Deformity about the tibial aspect of the knee with swelling and deformity laterally. Concavity where the patellar tendon should be. Patient is not able to lift her straight leg off the bed. Tenderness palpation along the inferior and lateral knee. No patellar displacement. ), Other - Neuro Neuro: Alert and oriented X 3 - Psych Psych: Normal mood, Normal affect Results - Vitals Vitals: Vital Signs - 24 hr 07/08/23 07/08/23 15:55 18:40 Temperature 36.3 C L Heart Rate 70 78 Respiratory 16 17 Rate Blood Pressure 116/57 L 136/49 H O2 Saturation 99 97 Oxygen O2 Source Room air - Labs Labs: Laboratory Tests 07/08/23 07/08/23 07/08/23 17:45 17:45 17:45 WBC 7.2 RBC 4.32 Hgb 12.6 Hct 39.2 MCV 90.7 MCH 29.2 MCHC 32.1 RDW 12.9 Plt Count 217 MPV 11.0 H Neut # (Auto) 5.1 Lymph # (Auto) 1.4 L [place] # (Auto) 0.5 Eos # (Auto) 0.1 Baso # (Auto) 0.0 Absolute Nucleated RBC 0.00 Nucleated RBC % 0.0 PT 11.3 INR 1.0 Sodium 137 Potassium 4.1 Chloride 102 Carbon Dioxide 28 Anion Gap 7.0 BUN 26 H Creatinine 0.8 Estimated GFR (MDRD) 73 L Glucose 112 H Calcium 10.2 Total Bilirubin 0.6 AST 20 ALT 13 Alkaline Phosphatase 55 Total Protein 7.0 Albumin 4.4 Globulin 2.6 Albumin/Globulin Ratio 1.7 Lipase 53 - Rads (name of study) X-ray right knee Relevant Findings:: Final report received, See rad report (Tibial plateau fracture impacted) CT noncontrast right knee Relevant Findings:: Final report received, See rad report (Schatzker 6 tibial plateau fracture) PD Medical Decision Making - ED course Complexity details: reviewed results, re-evaluated patient, considered differential, d/w patient ED course: The patient was worked up with imaging and ultimately labs and COVID test. X- ray showed a tibial plateau fracture, which I discussed with Dr. Delgado of orthopedics. He stated that given the degree of fracture and the necessary complexity of repair, we would not be able to do it here at [facility]. He recommended CT scan and transfer to higher level of care. CT was done and showed a Schatzker 6 tibial plateau fracture. The patient was placed in a knee immobilizer. I spoke with Dr. Bhatti in the emergency department at [facility] and he excepted the patient in transfer.The plan was discussed with the patient who is feeling much better after receiving Dilaudid, and she was agreeable to transfer. Departure - Departure Disposition: 02 Transfer Acute Care Hosp Clinical Impression: Tibial plateau fracture, right Qualifiers: Encounter type: initial encounter Fracture type: closed Qualified Code(s): S82.141A - Displaced bicondylar fracture of right tibia, initial encounter for closed fracture Condition: Serious Forms: PCP List
[2023-07-08 19:26] VITALS: O2SAT 100
[2023-07-08 20:03] VITALS: BP 109/71
== END 2023-07-08 19:56 | disposition short-term general hospital (02) ==
LOC: ED 15:47
DX: S82.141A Displaced bicondylar fracture of right tibia, initial encounter for closed fracture (principal); W54.1XXA Struck by dog, initial encounter; G35 Multiple sclerosis
CPT/HCPCS: 36415; 73564; 73700; 80053; 83690; 85025; 85610; 87635; 96374; 96375; 96376; 99285; J1170